=== PATIENT | male | born 1975 | race Caucasian/White ===

== ENCOUNTER 2022-01-24 16:49 | Outpatient (CLI) | payer OTHER, SELFPAY ==
[2022-01-24 16:04] LABS: Albumin* 4.8 g/dL (3.3-5.0); Chloride* 104 mmol/L (96-114); Potassium* 4.3 mmol/L (3.6-5.1); Sodium* 139 mmol/L (135-149)
[2022-01-24 16:06] LABS: Carbon Dioxide* 25 mmol/L (20-32); Cholesterol* 181 mg/dL (90-199); Creatinine* 0.7 mg/dL (0.5-1.5); Estimated Glomerular Filt Rate 114 ml/min
[2022-01-24 16:07] LABS: Alanine Aminotransferase* 15 U/L (4-50); Alkaline Phosphatase* 53 U/L (40-150); Aspartate Amino Transferase* 33 U/L (12-35); Bilirubin Total* 0.9 mg/dL (0.1-1.5); Blood Urea Nitrogen* 21 mg/dL (5-24); Calcium* 9.4 mg/dL (8.4-10.6); Glucose* 104 mg/dL (60-115); HDL Cholesterol* 61 mg/dL (>=40); LDL Cholesterol Calculated 104 mg/dL (<100); Total Protein* 7.7 g/dL (6.0-8.3); Triglycerides* 81 mg/dL (40-149)
[2022-01-24 16:38] LABS: PSA Screen* 0.95 ng/mL (0.10-4.00)
== END 2022-01-24 16:50 | disposition home or self-care (01) ==
PROVIDERS: PCP Internal Medicine; Visit Provider Internal Medicine
DX: Z13.6 Encounter for screening for cardiovascular disorders (principal); Z12.5 Encounter for screening for malignant neoplasm of prostate
CPT/HCPCS: 80053; 80061; 84153

== ENCOUNTER 2023-11-16 14:36 | Outpatient (CLI) | payer OTHER, SELFPAY | END 2023-11-16 14:37 | disposition home or self-care (01) | LOC: NFLDREF 14:37 | PROVIDERS: PCP Internal Medicine; Visit Provider Internal Medicine | DX: Z13.29 Encounter for screening for other suspected endocrine disorder (principal); Z13.220 Encounter for screening for lipoid disorders; Z13.228 Encounter for screening for other metabolic disorders | CPT/HCPCS: 80053; 80061; 84403 ==

== ENCOUNTER 2024-11-07 09:25 | Outpatient (CLI) | payer OTHER, SELFPAY | END 2024-11-07 09:26 | disposition home or self-care (01) | PROVIDERS: PCP Internal Medicine; Visit Provider Internal Medicine | DX: R52 Pain, unspecified (principal); F41.9 Anxiety disorder, unspecified; R53.83 Other fatigue; Z11.9 Encounter for screening for infectious and parasitic diseases, unspecified | CPT/HCPCS: 80053; 84443; 86618; 87086 ==